=== PATIENT | female | born 1955 | race Caucasian/White ===

== ENCOUNTER 2017-11-08 17:29 | Emergency (ER) | payer BC ==
--- NOTE | 2017-11-08 17:58 | ED ---
Upper Extremity Pain - HPI Summary HPI Summary: Complains of right wrist and right hand pain, swelling, S/P mechanical fall today. Patient tripped while walking on sidewalk, landed on right hand. Abrasions to the palm. Denies head injury, LOC, MCKENNA, vision change, loss of sensation or function in right hand, pain in any other area. Bleeding controlled. - History of Current Complaint Chief Complaint: EDExtremityUpper Stated Complaint: FALL/RT HAND INJURY Time Seen by Provider: 11/08/17 17:49 Hx Obtained From: Patient Mechanism Of Injury: Fall From A Standing Position Severity Currently: Moderate Pain Location: Wrist, Hand Character: Sharp Aggravating Factor(s): Movement Alleviating Factor(s): Nothing Associated Signs & Symptoms: Positive: Swelling, Bruising - Risk Factors Non-Orthopedic Risk Factor: Negative DVT Risk Factors: Negative Septic Arthritis Risk Factor: Negative Compartment Syndrome Risk Factors: Pain - Allergies/Home Medications Allergies/Adverse Reactions: Allergies Allergy/AdvReac Type Severity Reaction Status Date / Time No Known Allergies Allergy Verified 11/08/17 17:56 Home Medications: Home Medications Omeprazole 40 mg PO DAILY 11/08/17 [History Confirmed 11/08/17] PMH/Surg Hx/FS Hx/Imm Hx Infectious Disease History: No Infectious Disease History: Denies: Traveled Outside the [place] in Last 30 Days Review of Systems Constitutional: Negative Eyes: Negative ENT: Negative Cardiovascular: Negative Respiratory: Negative Gastrointestinal: Negative Genitourinary: Negative Musculoskeletal: Negative Skin: Negative Neurological: Negative Psychological: Normal All Other Systems Reviewed And Are Negative: Yes Physical Exam - Summary Physical Exam Summary: Negative snuffbox tenderness. Negative axial load tenderness on thumb. 2 small minor abrasions on heel of right palm. No lacerations. PMS intact in right hand. Full range of motion of wrist, limited flexion of fingers of right. Triage Information Reviewed: Yes Vital Signs On Initial Exam: Initial Vitals Temp Pulse Resp BP Pulse Ox 98.7 F 69 14 110/88 99 11/08/17 17:33 11/08/17 17:33 11/08/17 17:33 11/08/17 17:33 11/08/17 17:33 Vital Signs Reviewed: Yes Appearance: Positive: Well-Appearing Skin: Positive: Warm Head/Face: Positive: Normal Head/Face Inspection Eyes: Positive: Normal Neck: Positive: Supple Respiratory/Lung Sounds: Positive: Clear to Auscultation Cardiovascular: Positive: Normal Abdomen Description: Positive: Nontender Musculoskeletal: Positive: Normal Neurological: Positive: Normal Psychiatric: Positive: Normal AVPU Assessment: Alert - Hen[place] Coma Scale Best Eye Response: 4 - Spontaneous Best Motor Response: 6 - Obeys Commands Best Verbal Response: 5 - Oriented Coma Scale Total: 15 Diagnostics - Vital Signs Vital Signs Temp Pulse Resp BP Pulse Ox 11/08/17 17:33 98.7 F 69 14 110/88 99 - Laboratory Lab Statement: Any lab studies that have been ordered have been reviewed, and results considered in the medical decision making process. - Radiology right wrist Xray Interpretation: No Acute Changes Radiology Interpretation Completed By: Radiologist right hand Xray Interpretation: No Acute Changes Radiology Interpretation Completed By: Radiologist Re-Evaluation - Re-Evaluation 1 Re-Evaluation Time: 19:51 Comment: Patient now has increased range of motion of fingers of right hand. Full flexion and extension. PMS intact Course/Dx - Diagnoses Provider Diagnoses: Hand sprain Discharge - Sign-Out/Discharge Documenting (check all that apply): Discharge - Discharge Plan Condition: Stable Disposition: HOME Patient Education Materials: Hand Sprain (ED) Referrals: Non Staff,Doctor [Primary Care Provider] - Additional Instructions: Ice hand 10-15 minutes per hour. Ibuprofen for pain and swelling. Return to the ED for any new or worsening symptoms - Billing Disposition and Condition Condition: STABLE Disposition: HOME
--- NOTE | 2017-11-08 19:14 | RAD ---
Indication: Right wrist pain 3 views of the wrist demonstrates no fracture. No other bone or joint abnormality is identified. IMPRESSION: NO FRACTURE OF THE WRIST IS NOTED.
--- NOTE | 2017-11-08 19:14 | RAD ---
Indication: Right hand pain after fall. 2 views of the right hand demonstrates no fracture. No other bone or joint abnormality is identified. IMPRESSION: NO FRACTURE OF THE RIGHT HAND IS NOTED.
[2017-11-08 20:28] VITALS: BP 133/95
== END 2017-11-08 20:09 | disposition home or self-care (01) ==
LOC: ED 17:29
DX: S63.91XA Sprain of unspecified part of right wrist and hand, initial encounter (principal); S60.511A Abrasion of right hand, initial encounter; W01.0XXA Fall on same level from slipping, tripping and stumbling without subsequent striking against object, initial encounter; Y93.01 Activity, walking, marching and hiking; Y92.480 Sidewalk as the place of occurrence of the external cause
CPT/HCPCS: 99281